=== PATIENT | female | born 1955 | race Caucasian/White ===

== ENCOUNTER → 2017-03-10 | Outpatient (CLI) | payer BC ==
[~2017-03-10] MED LIST: ADDERALL 30 MG30 M1 PO; ASPIRIN81 M2 PO; CALCIUM GLUCON500 GM MC; CLARITIN10 M3; COQ10-VIT E 201 EACH; DEPLIN-ALGAL O1 EAC1 PO; DULOXETINE HCL60 MG PO; FOSAMAX70 MG PO; GINKGO BILOBA500 MG PO; L-LYSINE1000 MG PO; LEVEMIR100 UNITS/; METFORMIN HCL500 M2 PO; MONTELUKAST SOD10 MG PO; MULTI-VITAMIN1 EAC1 PO; OMEGA 3-6-9 11200 M1 PO; PERCOCET5/325 PO; PRAVASTATIN SOD40 MG PO; PROBIOTIC1 EACH PO; TENORMIN25 M1 PO; TRULICITY1.5 MG/0.5 SUBQ; VESICARE5 MG PO; VITAMIN B12 SL; WELLBUTRIN
--- NOTE | ~2017-03-10 | EKG ---
PATIENT: SITA N UNIT #: [id number] Ventricular Rate: 71 BPM Atrial Rate: 71 BPM P-R Interval: 152 ms QRS Duration: 88 ms Q-T Interval: 406 ms QTC Calculation(Bezet): 441 ms P Clarkson: 17 degrees Calculated R Clarkson: 35 degrees Calculated T Clarkson: 27 degrees Diagnosis Line: Normal sinus rhythm Diagnosis Line: Low voltage QRS Diagnosis Line: Nonspecific ST and T wave abnormality Diagnosis Line: Abnormal ECG Diagnosis Line: No previous ECGs available Diagnosis Line: Confirmed by YUSUF REINOSO MD ([id number]) on 03/11/2017 Diagnosis Line: 6:01:36 PM INTERPRETING MD: ARLETH FORD
[2017-03-10 14:40] LABS: HEMATOCRIT 40.1 % (35.0-45.0); HEMOGLOBIN 12.8 gm/dL (12.0-16.0); MEAN CELL VOLUME 89.3 FL (83-96); MEAN CORPUSCULAR HEMOGLOBIN 28.5 PG (28-34); MEAN CORPUSCULAR HGB CONC 31.9 g/dL (30-36); MEAN PLATELET VOLUME 8.3 FL (6.5-11.5); RED BLOOD COUNT 4.49 X10e (3.90-5.30); RED CELL DISTRIBUTION WIDTH 13.2 % (11.0-15.5); WHITE BLOOD COUNT 6.5 X10e3 (4.0-10.5)
[2017-03-10 15:12] LABS: BUN/CREATININE RATIO 25.71; CALCIUM SERUM 9.3 mg/dL (8.4-10.2); CREATININE SERUM 0.7 mg/dL (0.6-1.4); GLOM FILT RATE Estimated 94.2 mL/min (>60); POTASSIUM 4.2 mmol/L (3.5-5.1)
== END | disposition home or self-care (01) ==
LOC: CAMB 14:00
PROVIDERS: Orthopaedic Surgery
DX: Z01.818 Encounter for other preprocedural examination (principal); M89.8X2 Other specified disorders of bone, upper arm
CPT/HCPCS: 36415; 80048; 85027; 93005

== ENCOUNTER 2017-03-17 10:05 | Inpatient (IN) | payer BC ==
--- NOTE | ~2017-03-17 | CO ---
Unit #: [id number] #: [id number] Patient: Flor BUCKNER [id number] [facility]. [place], [place] [address] [id number] I MR#: [id number] NAME: Flor BUCKNER ROOM: [facility] Age: 61 Sex: F Admission Date: 03/17/2017 : 1955 Attending Physician: Darryn Quesada M.D. Primary Care Physician: Teddy Bolanos M.D. CONSULTATION REPORT DIAGNOSIS Status post traumatic fracture of the left elbow with development of heterotopic ossification. HISTORY OF PRESENT ILLNESS Ms. Stacie Buckner is a pleasant 61-year-old female who has enjoyed reasonably good health outside of type 2 diabetes and some sleep apnea. She states that she, unfortunately, fell and had a traumatic fracture of her left elbow 2015. The patient was seen by Dr. Hanson and patient underwent total elbow replacement on the left side. She tolerated the procedure well and had done initially well until she had substantial loss of range of motion and pain. Subsequent x-rays demonstrated the presence of fairly traumatic heterotopic ossification. The patient was subsequently referred to Dr. Quesada to consider surgical removal. The patient was seen in consultation 02/22 and underwent removal of heterotopic ossification 03/17/17. There had been discussion about possible ulnar nerve translocation. However, this was left in its original location without transposing the nerve. The patient was also noted to have some ossification within the triceps muscle and this was left alone for fear of damaging the muscle and ultimately resulting in a tear. I have been asked to see Ms. Buckner regarding postoperative therapy. RECOMMENDATIONS Ms. Buckner was evaluated today. She was felt to be an excellent candidate for local radiotherapy to the left elbow. We underwent CT simulation followed by single shot which delivered a total of 800 cGy and a single fraction to the left elbow. Special care was taken to avoid the surgical incision itself. The patient was informed of any complications including very minute chance of secondary malignancy, typically 20 years post event. The patient tolerated this well and was returned to [facility] in stable condition. PAST MEDICAL HISTORY Remarkable for: 1. Allergic rhinitis. 2. Anxiety. 3. Arthritis. 4. Asthma. 5. Osteoporosis. 6. Sleep apnea. 7. She also suffers from type 2 diabetes. 8. She reports drug allergies to Ancef. 9. History of depression. Unit #: [id number] #: [id number] Patient: Flor BUCKNER 10. Irritable bowel syndrome as well. FAMILY HISTORY Remarkable of diabetes, alcohol abuse, bipolar disease. SOCIAL HISTORY The patient drinks modestly, less than seven drinks per week. She has never smoked. REVIEW OF SYSTEMS Completely unremarkable. PHYSICAL EXAMINATION GENERAL: This is a well developed, well nourished female. She has extensive bulky bandage of the left elbow with Davol drains in place. No active bleeding appreciated. The patient is in minimal pain at this time. She has no gross adenopathy. She has shoulder discomfort on the right side and is scheduled for right shoulder replacement. She has already undergone left shoulder replacement. ABDOMEN: Soft, nontender. EXTREMITIES: Without gross edema. Good feeling and sensation of the left hand. Approximately 50 minutes spent discussing issues with Ms. Buckner. Dictated by... Yury Abel M.D. CARLITO/jackson TD: 03/18/2017 11:47 JOB #: [id number] CONSULTATION REPORT Page 1 of 1 X Yury Abel MD X CONSULTATION REPORT
--- NOTE | ~2017-03-17 | CR90 ---
[facility] A Service of [facility] & [facility] RADIOLOGY TEXT RESULTS PATIENT: Flor BUCKNER LOCATION: C4B 456-01 : [birth year] UNIT #: [id number] AGE: [address]: Darryn Quesada MD SEX: F ORDER DR: [id number] [facility] [address] [place], [place] [address] [id number] I MR#: [id number] Acc #: [id number] NAME: Flor BUCKNER : 1955 SEX: F STUDY DATE/TIME: 03/17/2017 17:11 UNIT: [facility] ROOM: [facility] STUDY DESCRIPTION: CR Elbow 2 View Lt Attending Physician: Darryn Quesada M.D. Ordering Physician: Darryn Quesada M.D. Primary Care Physician: Teddy Bolanos M.D. MEDICAL IMAGING REPORT This report is preliminary unless electronic signature is present EXAM Two views left elbow INDICATIONS Postop left elbow surgery. FINDINGS Postsurgical changes of left elbow arthroplasty are noted. Hardware appears to project in expected position. The appearance of the hardware is really not significantly changed when compared to an exam from earlier today, but there are now azam seen along the posterior aspect of the elbow as well as a surgical drain within the operative bed. Elbow effusion is noted, as well. Patient has a [id number] left humeral fracture as well, which is old. IMPRESSION Postoperative findings as noted above. Dictated by... Annette Saleh M.D. THIS IS AN ELECTRONICALLY VERIFIED REPORT Annette Saleh M.D. at 03/18/2017 4:40 PM AFF/psc TD: 03/18/2017 02:32 JOB #: [id number] MEDICAL IMAGING REPORT Page 1 of 1 COPY
--- NOTE | ~2017-03-17 | DS ---
Unit #: [id number] #: [id number] Patient: Flor WARE [id number] [place], [place] [address] [id number] I MR#: [id number] NAME: Flor WARE ROOM: 456 Age: 61 Sex: F Admission Date: 03/17/2017 : 1955 Discharge Date: 03/18/2017 Attending Physician: Darryn Quesada M.D. Primary Care Physician: Teddy Bolanos M.D. DISCHARGE SUMMARY ADMITTING DIAGNOSIS Left elbow heterotopic ossification. DISCHARGE DIAGNOSIS Left elbow heterotopic ossification, status post resection of left elbow heterotopic ossification. ATTENDING Dr. Quesada, Orthopedic Surgery. CONSULTING PHYSICIAN Dr. Yury Abel for radiation treatments following heterotopic ossification protocol. PROCEDURES On March 17, 2017, the patient underwent resection of left elbow heterotopic ossification. Please see operative report for further details. BRIEF HISTORY Ms. Ware is a 61-year-old female, who underwent a left total elbow replacement in September 2016. After surgery, she developed a heterotopic ossification formation and lost a significant amount of range of motion in the left elbow. She was referred to Dr. Quesada to consider surgical treatment. Dr. Quesada recommended excision of the heterotopic ossifications and then following surgery radiation treatment for heterotopic ossification protocol. The risks, benefits, and alternatives were discussed with the patient and she elected to proceed with surgery on March 17, 2017. HOSPITAL COURSE The night of surgery, the patient was transferred to the orthopedic unit for postoperative care. Patient remained stable and her pain was well controlled. On postop day #1, the patient's vital signs remained stable. She was awake, alert, and oriented x3. She worked with physical therapy and was cleared to discharge home. She was treated by Dr. Abel with radiation for heterotopic ossification protocol. The left upper extremity was in a posterior splint. The splint was clean, dry, and intact. There was 260 mL out of her Hemovac drain overnight. This was discontinued in the room today. She had normal sensation and light touch in all five digits. There was a mild swelling in the hand, so the Davon bandage around the splint was rewrapped in the room today. She was neurovascularly intact to the median, ulnar, and radial nerves. Her hemoglobin was 11.4 and her Unit #: [id number] #: [id number] Patient: Flor WARE white blood cell count was 10.1. She was on aspirin and SCDs for DVT prophylaxis. CONDITION AT DISCHARGE Stable. DISPOSITION The patient will be discharged home where she has family to help with postoperative care. DISCHARGE MEDICATIONS 1. Adderall 30 mg p.o. daily. 2. Wellbutrin one tab p.o. daily. 3. Cymbalta 60 mg p.o. b.i.d. 4. Metformin 1000 mg p.o. at breakfast and dinner. 5. Probiotic one capsule p.o. daily. 6. Claritin 10 mg p.o. daily. 7. Lysine 1000 mg p.o. daily. 8. Atenolol 25 mg p.o. daily. 9. VESIcare 5 mg p.o. daily. 10. Pravastatin 40 mg p.o. daily. 11. Trulicity 1.5 mg subcutaneous on Fridays. 12. Levemir 25 units b.i.d. 13. Fosamax 70 mg p.o. on Fridays. 14. Singulair 10 mg p.o. daily. 15. COQ-10/vitamin E one tab p.o. daily. 16. Multivitamin daily. 17. Gingko biloba 500 mg p.o. daily. 18. Aspirin 81 mg p.o. daily. 19. Calcium gluconate 500 mg p.o. daily. 20. Deplin-Algal oil 15 mg p.o. daily. 21. Vitamin B12 at 250 mcg p.o. daily. 22. Percocet 5/325 mg one to two tabs p.o. q.4 hours p.r.n. The patient was given a prescription to dispense 65 tabs. DISCHARGE INSTRUCTIONS AND FOLLOWUP The patient will follow up in the office in two weeks' time for repeat x-rays of the left elbow. She will remain nonweightbearing of the left upper extremity and in her splint. She is not to get her splint wet. She must keep an occlusive dressing over this when showering. She may perform left hand range of motion as tolerated. She will keep her left upper extremity elevated and apply ice as needed. She will wear her sling to left upper extremity as needed. Dictated by... Jesus Cardenas APRN for Brent Owen TD: 03/19/2017 10:44 JOB #: [id number] Unit #: [id number] #: [id number] Patient: SITA,N NURY DISCHARGE SUMMARY Page 1 of 1 X JESUS CARDENAS APRN X DISCHARGE SUMMARY
--- NOTE | ~2017-03-17 | CR90 ---
[facility] A Service of [facility] RADIOLOGY TEXT RESULTS PATIENT: Flor BUCKNER LOCATION: [facility] : [birth year] UNIT #: [id number] AGE: [address]: Darryn Quesada MD SEX: F ORDER DR: [id number] [facility] [address] [place], [place] [address] [id number] I MR#: [id number] Acc #: [id number] NAME: Flor BUCKNER : 1955 SEX: F STUDY DATE/TIME: 03/17/2017 11:25 UNIT: CPACUOF ROOM: STUDY DESCRIPTION: CR Elbow 2 View Lt Attending Physician: Darryn Quesada M.D. Ordering Physician: Darryn Quesada M.D. Primary Care Physician: Teddy Bolanos M.D. MEDICAL IMAGING REPORT This report is preliminary unless electronic signature is present EXAM Left elbow series 03/17/2017 HISTORY Preop, had total left elbow October 2016. Patient states a bone grew over screws. Patient has increased loss of motion. AP and lateral views of the left elbow are presented. Comparison 02/22/2017. FINDINGS Old healed left mid humeral fracture. There is a partially visualized intramedullary nico in the proximal left humerus. Patient is status post left elbow arthroplasty. Orthopedic hardware shows unchanged alignment. There is no evidence of fracture or traumatic malalignment. There are soft tissue calcifications along the posterior aspect of the elbow joint. Similar appearance on prior examination. There is no indication of hardware loosening or hardware fracture. No joint effusion is suggested. Dictated by... Jero Stevens M.D. THIS IS AN ELECTRONICALLY VERIFIED REPORT Jero Stevens M.D. at 03/18/2017 6:32 PM Hayden TD: 03/17/2017 15:14 JOB #: [id number] MEDICAL IMAGING REPORT Page 1 of 1 COPY
--- NOTE | ~2017-03-17 | CR87 ---
[facility] A Service of [facility] RADIOLOGY TEXT RESULTS PATIENT: Flor BUCKNER LOCATION: [facility] 456-01 : 57 UNIT #: [id number] AGE: [address]: Darryn Quesada MD SEX: F ORDER DR: [id number] [facility] [address] [place], [place] [address] [id number] I MR#: [id number] Acc #: [id number] NAME: Flor BUCKNER : 1955 SEX: F STUDY DATE/TIME: 03/17/2017 15:36 UNIT: [facility] ROOM: [facility] STUDY DESCRIPTION: CR Elbow 1 View Lt Attending Physician: Darryn Quesada M.D. Ordering Physician: Darryn Quesada M.D. Primary Care Physician: Teddy Bolanos M.D. MEDICAL IMAGING REPORT This report is preliminary unless electronic signature is present EXAM 2 intraoperative fluoroscopic views of the left elbow. DATE: 03/17/2017 at 15:36 HISTORY Open reduction internal fixation of the left elbow today. COMPARISON Left elbow radiographs 03/17/2017 at 11:25. IMPRESSION 2 spot intraoperative fluoroscopic views were obtained of the left elbow during the procedure performed by Dr. Quesada. Fluoroscopy time 12 seconds was documented by the technologist. The 2 fluoroscopic images demonstrate features of left elbow arthroplasty. The long distal humeral and proximal radial stems appear appropriately located within the medullary cavities. The elbow joint appears appropriately aligned. Presumed heterotopic soft tissue calcifications are seen along the posterior aspect of the left elbow, similar to the preoperative exam. Features of old healed [id number] humeral shaft fracture, incompletely included in the field of view again noted. Please refer to the operative report for additional findings and recommendations. Dictated by... Nina Araiza M.D. THIS IS AN ELECTRONICALLY VERIFIED REPORT Nina Araiza M.D. at 03/18/2017 10:05 AM [facility] A Service [facility] RADIOLOGY TEXT RESULTS PATIENT: Flor BUCKNER LOCATION: [facility] 456-01 : [birth year] UNIT #: [id number] AGE: [address]: Darryn Quesada MD SEX: F ORDER DR: STEFAN/kris TD: 03/18/2017 00:54 JOB #: [id number] MEDICAL IMAGING REPORT Page 1 of 1 COPY
--- NOTE | ~2017-03-17 | OR ---
Unit #: [id number] #: [id number] Patient: Flor WARE [id number] [place], [place] [address] [id number] I MR#: [id number] NAME: Flor WARE ROOM: 456 Date of Procedure: 03/17/2017 Admission Date: 03/17/2017 Surgeon: Darryn Quesada M.D. : 1955 Attending Physician: Darryn Quesada M.D. Primary Care Physician: Teddy Bolanos M.D. OPERATIVE REPORT PREOPERATIVE DIAGNOSES 1. Heterotopic ossification, left total elbow arthroplasty. 2. Left ulnar nerve neuritis. POSTOPERATIVE DIAGNOSES 1. Heterotopic ossification, left total elbow arthroplasty. 2. Left ulnar nerve neuritis. PROCEDURES PERFORMED 1. Left elbow heterotopic ossification excision. 2. Left elbow capsular release. 3. Left elbow ulnar nerve neurolysis without transposition. ASSEMBLER FLEXIBLE LEADS Therese Harrell. ANESTHESIA General. ESTIMATED BLOOD LOSS 25 mL. COMPLICATIONS None apparent. INDICATIONS FOR PROCEDURE Ms. Ware is a 61-year-old female, who has undergone a left total elbow arthroplasty for a left distal humerus fracture. She now was found to have heterotopic ossification about the left elbow. She is referred for evaluation for possible HO excision. She is also noted to have some ulnar nerve paresthesias, which were mild. We discussed the nature of excision with the capsular release and possible nerve transposition. She elected to proceed. DESCRIPTION OF PROCEDURE The patient was identified in the preoperative holding area. The operative site was marked. A preoperative regional block was performed. The patient was brought to the operating room and placed supine on the operating table. A general anesthetic was induced. The patient was positioned supine with the arm on a hand table. The left upper extremity was then prepped and draped in sterile fashion. A sterile tourniquet was applied. The arm was exsanguinated and the tourniquet inflated. Unit #: [id number] #: [id number] Patient: Flor WARE The previous surgical incision was reopened. The arm was folded across the chest for the approach. Skin flaps were elevated medially and laterally. The ulnar nerve was identified along the medial border of the triceps. The ulnar nerve itself was encased in scar and fibrous tissue at the cubital tunnel, but more proximally along the triceps was healthy-appearing soboba type of bed. This was dissected out to the 2 heads of the FCU. The ulnar nerve was extensively scarred to the floor of the cubital tunnel and pass the joint at the 2 heads of the FCU. This was carefully mobilized with a 1/4-inch Jesse drain along this course. Attention was then turned to the lateral aspect of the elbow. A lateral column approach was performed. The elbow joint was entered through a lateral arthrotomy. The dissection was carried across the anterior humerus. Hohmann elevators were passed across the anterior humerus. Fibrous tissue was removed from the radiocapitellar joint. We were initially unable to visualize any of the implant at all. Osteotomes were utilized to resect the heterotopic ossification. There was a clear plane delineated here between the normal bone and heterotopic bone. This was elevated up across the anterior humerus. This was then removed with a combination of rongeurs and pituitary rongeurs. The anterior capsular tissue was identified. This was thickened and pathologic. This was resected and excised from the undersurface of the brachialis muscle. We additionally exposed the coronoid. The capsular tissue was adhered to the coronoid itself. This was released and the coronoid exposed. The tip of the coronoid was removed with a rongeur to avoid any bony impingement. There was one large fragment of bone medially, which was unable to be retrieved through our lateral approach. It was caught in soft tissue and attention was turned back to the medial aspect of the elbow. The medial elbow was opened along the medial epicondyle. This fragment of bone was identified and readily palpable. There was a large fragment appeared to be remaining fragment of the medial epicondyle as a flexor pronator musculature was attached here. This fragment was then further dissected out and removed. The elbow was taken through range of motion and she had regained elbow flexion of approximately 130 degrees. We will change them out at that point. C-arm imaging was brought in and confirmed resection of dystrophic calcifications anteriorly. Attention was then turned posteriorly. We elevated the triceps posteriorly and resected posterior capsular tissues and some posterior heterotopic bone. However, there was still dystrophic appearing calcification in the posterior compartment. Small triceps split was made and this tissue was found to be within the substance of the triceps itself and further debridement was felt to potentially compromise the triceps. Furthermore, it was noted a slight fracture what appeared to be a slight fracture line in the olecranon itself. This was stable, but further attempts at removing heterotopic bone around this area were felt to potentially compromise the olecranon. Suture was visualized as it entered into this area from her previous triceps repair and therefore we were elected to stop with any attempted further removal of bone posteriorly. The olecranon insufficiency was not such that any internal fixation. The wound was then irrigated and the triceps split closed, which extended along the subcutaneous border of the ulna. The tourniquet was then deflated and hemostasis achieved within the joint. The lateral arthrotomy was then closed with 0 Vicryl. A small window medially was closed as well. The elbow was taken through range of motion and the ulnar nerve was stable. The ulnar nerve was not at this point of any fibrous tissue that appeared to be in anyways compromised. Transposing this result in a considerable Z-type deformity to the nerve. We dissected this out little Unit #: [id number] #: [id number] Patient: Flor WARE bit further, but it reached what appeared to be the extent of dissection reasonably safely. We therefore elected to leave the nerve in an in situ position. It was not unstable with flexion and extension. It did not appear to be any undue tension on the nerve with elbow flexion. The wound was irrigated and closed in a layered fashion over a subcutaneous drain. The patient was placed into a well-padded posterior splint. DISPOSITION Stable to the recovery room. Dictated by... Brent Owen/sharon TD: 03/18/2017 01:54 JOB #: [id number] OPERATIVE REPORT Page 1 of 1 X Darryn Quesada MD X PROCEDURE OPERATIVE NOTE
[~2017-03-17 10:05] MED LIST changes: -PERCOCET5/325 PO
[2017-03-18 03:28] LABS: HEMATOCRIT 34.2 % (35.0-45.0); HEMOGLOBIN 11.4 gm/dL (12.0-16.0); MEAN CELL VOLUME 88.8 FL (83-96); MEAN CORPUSCULAR HEMOGLOBIN 29.5 PG (28-34); MEAN CORPUSCULAR HGB CONC 33.2 g/dL (30-36); MEAN PLATELET VOLUME 8.3 FL (6.5-11.5); RED BLOOD COUNT 3.85 X10e (3.90-5.30); RED CELL DISTRIBUTION WIDTH 13.2 % (11.0-15.5); WHITE BLOOD COUNT 10.1 X10e3 (4.0-10.5)
[2017-03-18] MEDS ORDERED: PERCOCET5/325 PO (16:39)
== END 2017-03-18 18:50 | disposition home or self-care (01) | DRG 479 ==
LOC: CSUR 10:05 → C4B 11:09 → CSUR 11:09 → CPACUOF 11:09 → CSUR 12:30 → CPACUOF 16:45 → C4B 17:50 → CPACUOF 17:50 → C4B 03-18 18:50
PROVIDERS: Orthopaedic Surgery
PROC: 0PB Upper Bones, Excision (ICD-10-PCS; principal; 2017-03-17 12:30)
PROC: 01N40ZZ Release Ulnar Nerve, Open Approach (ICD-10-PCS; 2017-03-17 12:30)
DX: M89.8X3 Other specified disorders of bone, forearm (principal); F32.9 Major depressive disorder, single episode, unspecified; Z96.622 Presence of left artificial elbow joint; F41.9 Anxiety disorder, unspecified; J45.909 Unspecified asthma, uncomplicated; E11.9 Type 2 diabetes mellitus without complications; Z79.84 Long term (current) use of oral hypoglycemic drugs; Z98.84 Bariatric surgery status; Z90.710 Acquired absence of both cervix and uterus; Z98.51 Tubal ligation status; G58.8 Other specified mononeuropathies; M81.0 Age-related osteoporosis without current pathological fracture; K58.9 Irritable bowel syndrome, unspecified
CPT/HCPCS: 73070; 76001; 82947; 85027; 97161; J1815; J2250; J2370; J2405; J2795; J3010; J3370